=== PATIENT | male | born 1995 | race Caucasian/White ===

== ENCOUNTER 2023-08-13 01:24 | Emergency (ER) | payer OTHER, SELFPAY ==
--- NOTE | 2023-08-13 01:26 | ECG_ITS ---
Test Reason : CHEST PAIN Blood Pressure : / mmHG Vent. Rate : 063 BPM Atrial Rate : 063 BPM P-R Int : 130 ms QRS Dur : 106 ms QT Int : 404 ms P-R-T Axes : 048 056 025 degrees QTc Int : 413 ms Normal sinus rhythm Normal ECG No previous ECGs available Referred By: Generic ED Physician Electronically Signed By:FLORES SINGH MD
[2023-08-13 01:34] VITALS: BP 146/81; BP 158/96; PULSE 63; PULSE 72; RESP 15; O2SAT 98; O2SAT 99; BMI 30.8
[2023-08-13 02:00] LABS: MANUAL DIFF FLAG NO
[2023-08-13 02:01] LABS: Basophils Absolute Auto 0.1 X10*3/uL (0.0-0.2); Basophils Percent Auto 0.7 % (0-2); Eosinophils Absolute Auto 0.2 X10*3/uL (0.0-0.4); Eosinophils Percent Auto 2.9 % (0-4); Hematocrit 39.2 % (42.0-52.0); Hemoglobin 13.7 g/dl (14.0-18.0); Imm Gran Abs Auto 0.02 X10*3/uL (0.00-0.03); Imm Gran Pct Auto 0.3 % (0.0-0.4); Lymphocytes Absolute Auto 2.3 X10*3/uL (1.2-4.9); Lymphocytes Percent Auto 33.4 % (20-40); Mean Corpuscular HGB Conc 34.9 g/dl (31.0-36.0); Mean Corpuscular Volume 85.8 fL (80.0-98.0); Mean Platelet Volume 10.3 fL (9.4-12.4); Monocytes Absolute Auto 0.6 X10*3/uL (0.1-1.2); Monocytes Percent Auto 8.3 % (2-11); Neutrophils Absolute Auto 3.7 x10*3/uL (2.0-8.3); Neutrophils Percent Auto 54.4 % (45-73); Platelet Count 192 X10*3/uL (160-400); Red Blood Count 4.57 X10*6/uL (4.60-5.80); Red Cell Distribution Width 12.3 % (11.0-16.0); White Blood Count 6.9 X10*3/uL (4.8-10.8)
[2023-08-13 02:16] LABS: Anion Gap 15 (12-20); Blood Urea Nitrogen 12 mg/dL (9-16); Calcium 9.8 mg/dL (8.4-10.2); Carbon Dioxide 26 mmol/L (22-29); Chloride 105 mmol/L (96-108); Estimated Glomerular Filt Rate > 60; Glucose Random 69 mg/dL (60-115); Potassium 3.4 mmol/L (3.3-5.1); Sodium 143 mmol/L (135-145)
[2023-08-13 02:24] LABS: Troponin-I High Sensitivity < 2.7 ng/L (<3.5-35.0)
--- NOTE | 2023-08-13 02:47 | ED_ITS ---
HPI - Chest Pain General Chief Complaint: Chest Pain Stated Complaint: Chest discomfort/Anxiety Time Seen by Provider: 08/13/23 02:38 Source: patient and family Mode of arrival: EMS History of Present Illness HPI narrative: 28-year-old male presents via EMS with reported chest pain onset that started off with palpitations proximally 1 hour after smoking marijuana/vaping. Patient has been experiencing this pain intermittently since /Saturday and was seen at [facility] on Saturday. Patient reports that he does have a follow-up appointment with his primary care doctor this Saturday. Patient received aspirin by EMS. Related Data Allergies Allergy/AdvReac Type Severity Reaction Status Date / Time No Known Allergies Allergy Verified 08/13/23 01:37 Review of Systems 2 Review of Systems: Pertinent positives and negatives as stated in HPI PMFSH Past Medical History Source: nursing notes reviewed Social History Social History Advance Directives: No Advance Directives Information Provided: No Physical Exam 2 Vital Signs: Vital Signs: Last Vital Signs Pulse 64 08/13/23 03:44 Resp 16 08/13/23 03:44 BP 130/78 08/13/23 03:44 Pulse Ox 99 08/13/23 03:44 O2 Del Method Room Air 08/13/23 01:34 BMI result Body Mass Index 30.8 VITAL SIGNS: Reviewed. GENERAL: Well developed, well nourished, in no acute distress. HEAD: Normocephalic/atraumatic EYES: PERRLA, EOMI EARS: Ext canals without abnormality, TMs non-bulging and non-erythematous NOSE: Nares patent bilateral OROPHARYNX: no oral lesions noted, posterior pharynx clear NECK: Supple, no adenopathy LUNGS: Normal breath sounds. No adventitious sounds or accessory muscle use. SpO2<99> CARDIOVASCULAR: Regular rate and rhythm without noted murmurs ABDOMEN: Soft, non-tender, non-distended with bowel sounds. MUSCULOSKELETAL: No tenderness, deformities, or effusions noted on gross inspection. EXTREMITIES: No cyanosis, clubbing or edema. SKIN: Inspection of the skin reveals no rashes NEUROLOGIC: Alert and oriented x 4. Strength and sensation to light touch were grossly intact x 4. Medical Decision Making Medical Decision Making [facility] Narrative: This is a 28-year-old male who vapes marijuana and has a history and clinical presentation, DDX: Pain secondary to vaping, very low clinical suspicion for ACS, viral illness, electrolyte derangements. I reviewed all investigations and hematologic indices are negative for leukocytosis or left shift, there is a normocytic anemia and no thrombocytopenia. Chemistry indices do not demonstrate any ADRIÁN or electrolyte derangements and high sensitivity troponin is undetectable. EKG does not demonstrate any acute changes. My interpretation is at patient is experiencing the palpitations and chest discomfort secondary to vaping. I did discuss this with him at the bedside and recommended that he limit using this until he is further evaluated by his primary care doctor. Differential Diagnosis Differential Diagnoses: The differential diagnosis associated with the presentation includes Please see the discussion above Admission/Observation Consideration of admission/observation: Escalation of care including admission/observation considered Please see the discussion above Lab Data MDM Lab Attestation statement: I reviewed the patient's lab results. Please see the discussion above 08/13/23 01:41 08/13/23 01:41 Labs: Lab Results 08/13/23 Range/Units 01:41 WBC 6.9 (4.8-10.8) X10*3/uL RBC 4.57 L (4.60-5.80) X10*6/uL Hgb 13.7 L (14.0-18.0) g/dl Hct 39.2 L (42.0-52.0) % MCV 85.8 (80.0-98.0) fL MCH 30.0 (27.0-33.0) pg MCHC 34.9 (31.0-36.0) g/dl RDW 12.3 (11.0-16.0) % Plt Count 192 (160-400) X10*3/uL MPV 10.3 (9.4-12.4) fL Immature Gran % (Auto) 0.3 (0.0-0.4) % Neut % (Auto) 54.4 (45-73) % Lymph % (Auto) 33.4 (20-40) % Carroll % (Auto) 8.3 (2-11) % Eos % (Auto) 2.9 (0-4) % Baso % (Auto) 0.7 (0-2) % Lymph # (Auto) 2.3 (1.2-4.9) X10*3/uL Carroll # (Auto) 0.6 (0.1-1.2) X10*3/uL Eos # (Auto) 0.2 (0.0-0.4) X10*3/uL Baso # (Auto) 0.1 (0.0-0.2) X10*3/uL Abs Immat Gran (auto) 0.02 (0.00-0.03) X10*3/uL Absolute Neuts (auto) 3.7 (2.0-8.3) x10*3/uL Absolute Nucleated RBC 0.000 (0.0-0.012) X10*3/uL Nucleated RBC % (auto) 0.0 (0.0-0.2) /100WBC Hold Blue Top SEE NOTE Sodium 143 (135-145) mmol/L Potassium 3.4 (3.3-5.1) mmol/L Chloride 105 (96-108) mmol/L Carbon Dioxide 26 (22-29) mmol/L Anion Gap 15 (12-20) BUN 12 (9-16) mg/dL Creatinine 0.80 (0.5-1.4) mg/dL Estim Creat Clear Calc 174.0 Estimated GFR > 60 Random Glucose 69 (60-115) mg/dL Calcium 9.8 (8.4-10.2) mg/dL Troponin I High Sens < 2.7 (<3.5-35.0) ng/L Independent Interpretation I performed an independent interpretation of an: EKG Interpretation: Normal sinus rhythm, HR-63, no STEMI, WV/QRS/QTC is within normal limits. Discharge Plan Discharge Clinical Impression: Atypical chest pain, Current every day vaping, Palpitations Patient Disposition: Home, Self-Care Instructions: Heart Palpitations (ED), How to Stop Smoking (ED), Chest Wall Pain (ED) Additional Instructions: 1. Recommend that you continue to follow-up with your doctor this coming Saturday for further evaluation of your palpitations. 2. Strongly consider stopping vaping. Try to avoid caffeinated products until you are evaluated by your primary care doctor. Return to the ER for any worsening symptoms. Referrals: Ernie Gregg PA [Primary Care Provider] - Interventions: ED Discharge Assessment Last Done: 08/13/23 03:46 Discharge Date/Time: 08/13/23 03:46
[2023-08-13 03:44] VITALS: BP 130/78; PULSE 64; RESP 16; O2SAT 99
== END 2023-08-13 03:46 | disposition home or self-care (01) ==
PROVIDERS: Emergency Provider Student in an Organized Health Care Education/Training Program; PCP Physician Assistant Medical
DX: R07.89 Other chest pain (principal); R00.2 Palpitations; F17.290 Nicotine dependence, other tobacco product, uncomplicated; Z79.899 Other long term (current) drug therapy
CPT/HCPCS: 36415; 80048; 84484; 85025; 93005; 99284

== ENCOUNTER → 2023-08-13 01:26 | Outpatient (BNV) | payer OTHER, SELFPAY | PROVIDERS: Emergency Provider Student in an Organized Health Care Education/Training Program; PCP Physician Assistant Medical; Visit Provider Internal Medicine Cardiovascular Disease | DX: R07.9 Chest pain, unspecified (principal) | CPT/HCPCS: 93010 ==

== ENCOUNTER 2024-02-03 14:47 | Outpatient (AMB) | payer OTHER, SELFPAY ==
--- NOTE | 2024-02-03 14:50 | MHC.OFFWIV ---
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 He states he feels like his ears fall and it is painful to touch the outside of his ear. He states he has a little bit of reduction in hearing because he thinks it is filled with wax. He tried to put hydrogen peroxide and yesterday a couple of times and some wax did come out but he still thinks there is more in there. He denies any fevers or tenderness on the bone behind his ear. He denies a history of diabetes. [facility] Social History Patient Tobacco Use Status: Never used Tobacco Review of Systems Const All systems reviewed & are unremarkable except as noted in HPI and below Physical Exam Vital Signs: Last Vital Signs Temp 97.9 F 02/03/24 14:51 Pulse 68 02/03/24 14:51 BP 146/80 H 02/03/24 14:51 Pulse Ox 98 02/03/24 14:51 Oxygen Delivery Method Room Air 02/03/24 14:51 BMI result Body Mass Index 34.0 Const General: cooperative, healthy appearing, comfortable and no acute distress Orientation/consciousness: patient oriented x3 HEENT Head: Yes normal to inspection Ears: TM normal on the left, mastoids normal (no TTP) on the right, Abnormal EAC present (right side) erythema, edema and EAC tenderness and unable to visualize TM (2/2 EAC infection) General nose exam: Normal external nose present Face and sinus: Yes normal facial exam Resp Effort & Inspection: normal respiratory effort and able to speak in complete sentences Neuro General: patient oriented x3 Assessment & Plan Assessment & Plan (1) Otitis externa: Code(s): H60.90 - Unspecified otitis externa, unspecified ear Qualifiers: Otitis externa type: swimmer's ear Chronicity: acute Laterality: right Qualified Code(s): H60.331 - Swimmer's ear, right ear Plan: Sent drops to pharmacy, along with ibuprofen to manage his pain. Recommended if pain continues after using the drops for a few days to come in as I could not see his tympanic membrane and I can not rule out otitis media. Medications: New [id number] 3.5-10,000-1 mg/mL-unit/mL-% 4 drps otic (ear) right Q8H 7 days 10 mL 0RF ibuprofen 600 mg PO Q6H PRN 30 tabs 0RF pain Coding Level of Care Code New Pt Level 3 (64442) Diagnoses Acute swimmer's ear of right side H60.331 Otitis externa type: swimmer's ear Chronicity: acute Laterality: right
[2024-02-03 14:51] VITALS: BP 146/80; PULSE 68; TEMP 36.6; O2SAT 98; BMI 34.0
== END 2024-02-03 15:19 | disposition home or self-care (01) ==
PROVIDERS: PCP Physician Assistant Medical; Visit Provider Physician Assistant
DX: H60.331 Swimmer's ear, right ear (principal)
CPT/HCPCS: 99203